=== PATIENT | female | born 1970 | race Caucasian/White ===

== ENCOUNTER 2022-08-23 13:20 | Outpatient (CLI) | payer OTHER, SELFPAY ==
--- NOTE | 2022-08-23 13:40 | CRLHL7_ITS ---
For Patients: As a result of the Cures Act, medical imaging exams and procedure reports are released immediately into your electronic medical record. You may view this report before your referring provider. If you have questions, please contact your health care provider. BILATERAL SCREENING MAMMOGRAM WITH COMPUTER-AIDED DETECTION AND TOMOSYNTHESIS TECHNIQUE: CC and MLO views were obtained. These mammographic images have been obtained using full-field digital technique. These mammographic images were interpreted with the benefit of computer-aided detection. Breast Tomosynthesis was used in this interpretation. COMPARISON FILM: 01/31/21, 02/27/20, 10/18/18. FINDINGS: There are scattered areas of fibroglandular density IMPRESSION: There is no radiographic evidence for malignancy. ASSESSMENT: BI-RADS Category 1: Negative RECOMMENDATION: Routine screening mammogram in 1 year. A lay language report of this examination will be provided to the patient. Myke See M.D. Diagnostic Radiologist [email or web address] [email or web address] be/Dictated by: Myke See MD @ 08/24/2022 9:38:00 AM (Electronically Signed)
== END 2022-08-23 13:21 | disposition home or self-care (01) ==
LOC: MAMMO 13:21
PROVIDERS: PCP Family Medicine; Visit Provider Family Medicine
DX: Z12.31 Encounter for screening mammogram for malignant neoplasm of breast (principal)
CPT/HCPCS: 77063; 77067

== ENCOUNTER 2023-01-11 20:41 | Emergency (ER) | payer OTHER, SELFPAY ==
[2023-01-11 20:50] VITALS: BP 138/90; PULSE 98; RESP 18; TEMP 36.8; O2SAT 97; BMI 31.6
--- NOTE | 2023-01-11 21:35 | CRLHL7_ITS ---
For Patients: As a result of the Century Cures Act, medical imaging exams and procedure reports are released immediately into your electronic medical record. You may view this report before your referring provider. If you have questions, please contact your health care provider. INDICATION: Fall from standing, left occipital head injury, cement block TECHNIQUE: CT Head without i.v. contrast. Coronal and sagittal reformats were obtained. COMPARISON: None FINDINGS: CSF space: The ventricles are normal for age. Brain: No evidence of mass, acute infarction or hemorrhage is seen. No mass-effect or midline shift is seen. The brain parenchyma is otherwise normal in appearance with preservation of the sanchez-white matter junction. Calvarium: The visualized paranasal sinuses are well aerated. The mastoid air cells are clear. The visualized orbits are grossly unremarkable. The calvarium is unremarkable in appearance with no fractures identified. IMPRESSION: 1. No evidence of acute infarction, intracranial hemorrhage, or mass-effect seen. Please note that all CT scans at this facility use dose modulation, iterative reconstruction, and/or weight-based dosing when appropriate to reduce radiation dose to as low as reasonably achievable. Dictated by: Mt Leal MD @ 01/11/2023 22:19:39 (Electronically Signed)
--- NOTE | 2023-01-11 21:39 | CRLHL7_ITS ---
For Patients: As a result of the Century Cures Act, medical imaging exams and procedure reports are released immediately into your electronic medical record. You may view this report before your referring provider. If you have questions, please contact your health care provider. INDICATION: Neck injury, fall from standing TECHNIQUE: CT cervical spine without i.v. contrast. Coronal and sagittal reformats were obtained. COMPARISON: None FINDINGS: The sensitivity and specificity of the exam are moderately limited by artifacts from patient motion. Alignment: Straightening and trace kyphosis noted. Bone: No acute fractures or aggressive bone lesions are identified. Disc: The disc spaces are unremarkable in appearance. The facet joints are unremarkable. Soft tissue: The prevertebral soft tissues are unremarkable in appearance. The visualized lung apices and mediastinum are unremarkable. IMPRESSION: 1. No acute osseous injuries are identified. Please note that all CT scans at this facility use dose modulation, iterative reconstruction, and/or weight-based dosing when appropriate to reduce radiation dose to as low as reasonably achievable. Dictated by: Mt Leal MD @ 01/11/2023 22:25:07 (Electronically Signed)
--- NOTE | 2023-01-11 22:27 | ED_ITS ---
HPI - Fall General Time Seen by Provider: 22:41 Date Seen: 01/11/23 Chief Complaint: Fall/Minor Trauma Stated Complaint: Fall and sliced left hand and hit head Time Seen by Provider: 01/11/23 22:27 Source: patient, family, RN notes reviewed and old records reviewed Mode of arrival: ambulatory Limitations: no limitations History of Present Illness HPI Narrative: Patient is a very pleasant 53-year-old female with up-to-date immunizations who is brought to the emergency room by her for evaluation of head injury and left hand injury. Patient initially seen by my partner Dr. Franklin who ordered radiology studies. Patient was noted to be running out to rescue her parents dog when it was threatened by the neighbor's dog. Unfortunately she ended up tripping falling sideways skating along concrete as well as mulch area. She notes that she did hit her head and she saw stars and was admitted initially unable to get up. She notes that she has been moving her neck without difficulty. She denies chest pain or shortness of breath. She notes that her right hand over the thenar eminence does hurt but she is able to move her hand. She has pain at the base of her right home and thinks that there is mulch and debris under this laceration flap. No pain medications have been taken at this time. Related Data Home Medications Medication Instructions Recorded Confirmed bupropion HCl 300 mg 24 hr tablet, 300 mg PO DAILY 01/11/23 01/11/23 extended release diclofenac potassium 50 mg tablet 50 mg PO BID 01/11/23 01/11/23 fluticasone propionate 50 intranasal 01/11/23 mcg/actuation nasal spray,suspension norethindrone (contraceptive) 0.35 0.35 mg PO DAILY 01/11/23 01/11/23 mg tablet omeprazole 20 mg capsule,delayed 20 mg PO DAILY 01/11/23 01/11/23 release venlafaxine 75 mg capsule,extended 225 mg PO DAILY 01/11/23 01/11/23 release 24 hr Previous Rx's Medication Instructions Recorded triamterene 37.5 1 tab PO QDAY #90 tabs 07/10/22 mg-hydrochlorothiazide 25 mg tablet Allergies Allergy/AdvReac Type Severity Reaction Status Date / Time codeine Allergy Intermediate Vomiting Verified 07/10/22 15:14 Sulfa (Sulfonamide Allergy Mild Hives Verified 07/10/22 15:14 Antibiotics) Review of Systems Status of ROS: Reports: 6 or more systems reviewed and unremarkable except as noted in History and below [facility] Social History Smoking Status: Never smoker Do you use any of these nicotine containing products: None Second hand tobacco smoke exposure: No How often do you have a drink containing alcohol: never AUDIT-C Alcohol total score: 0 Non-prescribed substance use: denies use Exam Narrative: Exam Narrative: Patient is alert and oriented. EOM is full and pupils are equal round reactive. TMs bilaterally without erythema or fluid. GCS of 15. Negative Oliver sign. Face is symmetrical. Speech content and enunciation appropriate Neck is supple. No cervical midline tenderness Heart with regular rate and rhythm and lungs are clear to auscultation. Moving all extremities. Examination of the right hand shows superficial laceration flap compromising epidermis minimally compromising the dermis over the thenar eminence. This is measuring approximately 2 cm. No foreign body is noted. Patient is able to move some without difficulty. Examination of the left hand shows a v-shaped flap at the base of the left palm. This compromises epidermis dermis and subcutaneous tissue is visualized. Of note there does appear to be some debris in that area. Patient is so tender to the touch that we will be placing let and irrigating this area for patient comfort. Const: Vital Signs, click to edit/add: Vital Signs - 24 hr 01/11/23 20:50 01/11/23 22:47 01/12/23 00:10 Temperature 98.2 F Pulse Rate [Pulse Oximeter] 98 82 84 Respiratory Rate 18 20 20 Blood Pressure [Le ft Upper Arm] 138/90 H 142/90 H Pulse Oximetry 97 96 95 Oxygen Delivery Me thod Room Air Room Air Room Air 01/12/23 00:35 01/12/23 00:52 Temperature 98 F Pulse Rate [Pulse Oximeter] 89 Respiratory Rate 20 Blood Pressure [Le ft Upper Arm] 120/81 145/87 H Pulse Oximetry 98 Oxygen Delivery Me thod Room Air Documenting provider has reviewed patient's vital signs: yes Course Course Hospital Course: Patient had wound on left hand cleansed. Let applied with moderate anesthesia achieved. Copious amount of irrigation to this area. Continued exploration was painful and thus I did use 1% lidocaine with epinephrine for further anesthesia. Few small pieces debris removed from the wound. No other large pieces noted. I placed 3 sutures loosely on the flap measuring approximately 3 cm leaving the tip to be glued with Dermabond. I explained to patient that I am unable to completely suture this wound given the nature of how contaminated was and concern for infection. Discussed use of prophylactic antibiotics. Vital Signs Vital signs: Initial Vital Signs Temperature 98.2 F 01/11/23 20:50 Temperature Source Temporal Artery Scan 01/11/23 20:50 Pulse Rate 98 01/11/23 20:50 Pulse Rhythm Regular 01/11/23 20:50 Respiratory Rate 18 01/11/23 20:50 Blood Pressure 138/90 H 01/11/23 20:50 Blood Pressure Mean 106 H 01/11/23 20:50 Pulse Oximetry 97 01/11/23 20:50 Oxygen Delivery Method Room Air 01/11/23 20:50 Vital Signs Temperature 98.2 F 01/11/23 20:50 Pulse Rate 98 01/11/23 20:50 Respiratory Rate 18 01/11/23 20:50 Blood Pressure 138/90 H 01/11/23 20:50 Pulse Oximetry 97 01/11/23 20:50 Oxygen Delivery Method Room Air 01/11/23 20:50 Temperature 98 F 01/12/23 00:52 Pulse Rate 89 01/12/23 00:52 Respiratory Rate 20 01/12/23 00:52 Blood Pressure 145/87 H 01/12/23 00:52 Pulse Oximetry 98 01/12/23 00:52 Oxygen Delivery Method Room Air 01/12/23 00:52 MDM - Fall MDM Narrative Medical decision making narrative: 1. Closed head injury-CT reassuring as is cervical spine. Continue to monitor. Seek medical attention for vomiting, worsening symptoms. 2. Left hand laceration-sutures placed loosely after copious irrigation of left hand wound. Multiple small pieces of mulch and small pieces of wood were irrigated. Will start patient on Keflex 500 mg p.o. b.i.d. x5 days is infection prophylaxis. Seek medical attention for redness, purulent drainage, fever and as needed. Avoid soaking hand in water such is doing dishes, in the hot tub or in the back. She may shower and dab dry. Suture removal in 8-10 days time. Antibiotic per instant meds. 3. Disposition-home at this time. Seek medical attention for worsening symptoms. Medical Records Attestation: I reviewed the patient's medical records. Imaging Data C-Spine CT: Attestation: I have reviewed the pertinent imaging results. My impression: No obvious cervical fracture Radiologist's impression: Alignment: Straightening and trace kyphosis noted. Bone: No acute fractures or aggressive bone lesions are identified. Disc: The disc spaces are unremarkable in appearance. The facet joints are unremarkable. Soft tissue: The prevertebral soft tissues are unremarkable in appearance. The visualized lung apices and mediastinum are unremarkable. IMPRESSION: 1. No acute osseous injuries are identified. CT scan - head: Attestation: I have reviewed the pertinent imaging results. My impression: No obvious bleed. Radiologist's impression: CSF space: The ventricles are normal for age. Brain: No evidence of mass, acute infarction or hemorrhage is seen. No mass-effect or midline shift is seen. The brain parenchyma is otherwise normal in appearance with preservation of the sanchez-white matter junction. Calvarium: The visualized paranasal sinuses are well aerated. The mastoid air cells are clear. The visualized orbits are grossly unremarkable. The calvarium is unremarkable in appearance with no fractures identified. IMPRESSION: 1. No evidence of acute infarction, intracranial hemorrhage, or mass-effect seen. Discharge Plan Discharge Clinical Impression: Closed head injury, Hand laceration Patient Disposition: Home, Self-Care Condition: Improved Additional Instructions: Ibuprofen or Tylenol as needed for discomfort. Monitor for signs of infection. Seek medical attention for drainage of pus, increasing redness, fever or chills. Stitches suture removal in 8-10 days time. Start Keflex for antibiotic prophylaxis. Prescriptions: No Action venlafaxine 75 mg capsule,extended release 24hr 225 mg PO DAILY diclofenac potassium 50 mg tablet 50 mg PO BID omeprazole 20 mg capsule,delayed release(DR/EC) 20 mg PO DAILY norethindrone (contraceptive) 0.35 mg tablet 0.35 mg PO DAILY fluticasone propionate 50 mcg/actuation spray,suspension INTRANASAL Patient Comments: [NO ORIGINAL SIG] bupropion HCl 300 mg tablet extended release 24 hr 300 mg PO DAILY triamterene-hydrochlorothiazid 37.5-25 mg tablet 1 tab PO QDAY Qty: 90 1RF Follow Up/Referrals: Cuate Ahuja MD [Primary Care Provider] - Stand Alone Forms: [facility] Info Instructions
[2023-01-11 22:47] VITALS: BP 142/90; PULSE 82; RESP 20; O2SAT 96
[2023-01-12 00:10] VITALS: PULSE 84; RESP 20; O2SAT 95
[2023-01-12 00:35] VITALS: BP 120/81
[2023-01-12 00:52] VITALS: BP 145/87; PULSE 89; RESP 20; TEMP 36.6; O2SAT 98
--- NOTE | 2023-01-12 00:53 | ED.NURSE ---
Pt D/C understanding information. Aware to call primary care clinic to get sutures removed in 8-10 days per MD D/C information
== END 2023-01-12 00:50 | disposition home or self-care (01) ==
PROVIDERS: Emergency Provider Family Medicine; PCP Family Medicine
DX: S09.90XA Unspecified injury of head, initial encounter (principal); S61.412A Laceration without foreign body of left hand, initial encounter; W01.198A Fall on same level from slipping, tripping and stumbling with subsequent striking against other object, initial encounter; Y93.02 Activity, running
CPT/HCPCS: 12002; 70450; 72125; 99284

== ENCOUNTER 2024-04-25 13:40 | Outpatient (CLI) | payer OTHER, SELFPAY | END 2024-04-25 13:41 | disposition home or self-care (01) | LOC: NFLDREF 05-01 14:57 | PROVIDERS: PCP Family Medicine; Referring Provider Family Medicine; Visit Provider Family Medicine | DX: I10 Essential (primary) hypertension (principal); E78.2 Mixed hyperlipidemia | CPT/HCPCS: 80048; 80061; 84460 ==

== ENCOUNTER 2024-06-13 13:00 | Outpatient (CLI) | payer OTHER, SELFPAY ==
--- NOTE | 2024-06-13 13:20 | CRLHL7_ITS ---
For Patients: As a result of the Century Cures Act, medical imaging exams and procedure reports are released immediately into your electronic medical record. You may view this report before your referring provider. If you have questions, please contact your health care provider. BILATERAL SCREENING MAMMOGRAM WITH COMPUTER-AIDED DETECTION AND TOMOSYNTHESIS TECHNIQUE: CC and MLO views were obtained. These mammographic images have been obtained using full-field digital technique. These mammographic images were interpreted with the benefit of computer-aided detection. Breast Tomosynthesis was used in this interpretation. COMPARISON FILM: 08/23/22, 01/31/21, 02/27/20. FINDINGS: The breasts are almost entirely fatty. IMPRESSION: There is no radiographic evidence for malignancy. ASSESSMENT: BI-RADS Category 1: Negative RECOMMENDATION: Routine screening mammogram in 1 year. A lay language report of this examination will be provided to the patient. Myke See M.D. Diagnostic Radiologist [email or web address] SP/Dictated by: Myke See MD @ 06/16/2024 10:59:00 AM (Electronically Signed)
== END 2024-06-13 13:01 | disposition home or self-care (01) ==
LOC: MAMMO 13:02
PROVIDERS: PCP Family Medicine; Visit Provider Family Medicine
DX: Z12.31 Encounter for screening mammogram for malignant neoplasm of breast (principal)
CPT/HCPCS: 77063; 77067

== ENCOUNTER 2025-04-27 11:42 | Outpatient (CLI) | payer OTHER, SELFPAY ==
--- NOTE | 2025-05-19 09:53 | W.PM.SLEEP ---
Sleep Study Details Details Interpreting Provider: Alexandr Date of Sleep Study: 04/27/25 Sleep Study Details: STUDY TYPE:? Home unattended ? BMI:? 33.47 ORDERING PROVIDER:? Alexandr INDICATION:? Concerns about sleep apnea ? SLEEP SUMMARY:? 340.5 minutes monitored RESPIRATORY SUMMARY:? AHI is 61 per rule 1A, 53.4 per CMS guideline Low oxygen 79 10.9% of study oxygen less than 90% Snoring 100% PERIODIC LIMB MOVEMENTS OF SLEEP:? Not recorded CARDIAC:? Range 51-92, mean 73 beats per minute IMPRESSION:? Severe obstructive sleep apnea with significant hypo oxygenation RECOMMENDATION: Patient is currently on CPAP but not tolerating it well. Other options for her would be inspire or consideration of maxillomandibular advancement surgery. Weight loss is also indicated
== END 2025-04-27 11:43 | disposition home or self-care (01) ==
LOC: SLEEP 11:43
PROVIDERS: PCP Family Medicine; Visit Provider Otolaryngology
DX: G47.33 Obstructive sleep apnea (adult) (pediatric) (principal)
CPT/HCPCS: 95806

== ENCOUNTER 2025-07-13 09:17 | Outpatient (CLI) | payer OTHER, SELFPAY ==
--- NOTE | 2025-07-13 09:15 | CRLHL7_ITS ---
For Patients: As a result of the Century Cures Act, medical imaging exams and procedure reports are released immediately into your electronic medical record. You may view this report before your referring provider. If you have questions, please contact your health care provider. INDICATION: BILATERAL SCREENING MAMMOGRAM, ASYMPTOMATIC 60 Y/O FEMALE COMPARISON: 06/13/2024, 08/23/2022, 01/31/2021 TECHNIQUE: Digital mammogram in CC and MLO projections including computer-aided detection (CAD) and tomosynthesis. BREAST COMPOSITION: The breasts are almost entirely fatty. FINDINGS: No suspicious findings. ASSESSMENT: BI-RADS 2 Benign RECOMMENDATION: Annual screening mammogram. A lay language report of this examination will be provided to the patient. Dictated by: Myke See MD @ 07/13/2025 10:31:40 (Electronically Signed)
== END 2025-07-13 09:18 | disposition home or self-care (01) ==
LOC: MAMMO 09:18
PROVIDERS: PCP Family Medicine; Visit Provider Family Medicine
DX: Z12.31 Encounter for screening mammogram for malignant neoplasm of breast (principal)
CPT/HCPCS: 77063; 77067

== ENCOUNTER 2025-08-24 09:47 | Outpatient (CLI) | payer OTHER, SELFPAY | END 2025-08-24 09:48 | disposition home or self-care (01) | PROVIDERS: PCP Family Medicine; Visit Provider Family Medicine | DX: I10 Essential (primary) hypertension (principal); E78.2 Mixed hyperlipidemia | CPT/HCPCS: 80048; 80061; 84460; 85025 ==